=== PATIENT | female | born 1955 | race Caucasian/White ===

== ENCOUNTER 2017-06-19 10:48 | Outpatient (CLI) | payer BC ==
--- NOTE | 2017-06-27 16:56 | MMO ---
BILATERAL SCREENING MAMMOGRAMS: DATE: 06/19/2017 COMPARISON: An outside exam dated 03/31/2015. This patient's mammogram was interpreted with the assistance of computer-aided detection. FINDINGS: Scattered fibroglandular densities. There is an asymmetric nodular density in the outer left breast seen on CC view only. Recommend that this be further evaluated with diagnostic left breast exam. IMPRESSION: BI-RADS 0: Incomplete. Further imaging of left breast required. POS: SELENA
== END 2017-06-19 10:49 | disposition home or self-care (01) ==
LOC: MAMMO 10:48
PROVIDERS: ATTEND Family Medicine
DX: Z12.31 Encounter for screening mammogram for malignant neoplasm of breast (principal)
CPT/HCPCS: 77067; G0202

== ENCOUNTER 2017-06-28 12:58 | Outpatient (CLI) | payer BC ==
--- NOTE | 2017-06-28 14:50 | ULT ---
ULTRASOUND LEFT BREAST: Technique: Ultrasound of the outer left breast was performed to assess a nodular density noted on keren mography. FINDINGS: No sonographic abnormality identified. IMPRESSION: No sonographic abnormality. Recommend follow up left breast mammogram in six months to confirm stabil ity of the mammogram finding. BIRADS 3 - probably benign. Six month follow up left breast mammogram r ecommended. POS: SELENA
--- NOTE | 2017-06-28 14:55 | MMO ---
DIAGNOSTIC LEFT MAMMOGRAM: Technique: Patient returns for additional mammograms of the left breast. FINDINGS: Small nodular density is the outer left breast is again seen on mag C view. This density is not well seen on the MLO or ML projections. Ultrasound of the outer left breast was performed. No suspicious sonographic abnormality identified. Recommend follow up left breast mammogram to confirm stability. IMPRESSION: BIRADS 3 - probably benign. Recommend six month follow up left breast mammogram. POS: SELENA
== END 2017-06-28 12:59 | disposition home or self-care (01) ==
LOC: MAMMO 12:58
PROVIDERS: ATTEND Family Medicine
DX: R92.2 Inconclusive mammogram (principal)
CPT/HCPCS: G0206-LT

== ENCOUNTER 2018-02-16 15:15 | Outpatient (CLI) | payer OTHER | END 2018-02-16 15:16 | disposition home or self-care (01) | LOC: BICMAMMO 15:15 | PROVIDERS: ATTEND Family Medicine | DX: R92.8 Other abnormal and inconclusive findings on diagnostic imaging of breast (principal) | CPT/HCPCS: G0279 ==

== ENCOUNTER 2019-05-01 07:53 | Outpatient (CLI) | payer OTHER ==
--- NOTE | 2019-05-01 08:24 | MMO ---
Bilateral MAMMO Bilat Screen [facility]. CLINICAL HISTORY: Patient is 63 years old and is seen for screening. The patient has no family history of breast cancer. The patient has no personal history of cancer. VIEWS: The views performed were: bilateral craniocaudal with tomosynthesis; bilateral mediolateral oblique with tomosynthesis; and bilateral exaggerated craniocaudal. FILMS COMPARED: The present examination has been compared to prior imaging studies performed at [facility] on 06/19/2017, 06/28/2017 and 02/16/2018. This study has been interpreted with the assistance of computer-aided detection. MAMMOGRAM FINDINGS: There are scattered fibroglandular densities. There are stable benign appearing calcifications seen in both breasts. There are no suspicious masses, suspicious calcifications, or new areas of architectural distortion. IMPRESSION: THERE IS NO MAMMOGRAPHIC EVIDENCE OF MALIGNANCY. A ROUTINE FOLLOW-UP MAMMOGRAM IN 1 YEAR IS RECOMMENDED. THE RESULTS OF THIS EXAM WERE SENT TO THE PATIENT. ACR BI-RADS Category 2 - Benign finding MAMMOGRAPHY NOTE: 1. A negative mammogram report should not delay a biopsy if a dominant of clinically suspicious mass is present. 2. Approximately 10% to 15% of breast cancers are not detected by mammography. 3. Adenosis and dense breasts may obscure an underlying neoplasm. Reported by: MARIA DASILVA MD Electonically Signed: [id number]
== END 2019-05-01 07:54 | disposition home or self-care (01) ==
LOC: BICMAMMO 07:53
PROVIDERS: ATTEND Family Medicine
DX: Z12.31 Encounter for screening mammogram for malignant neoplasm of breast (principal)
CPT/HCPCS: 77063; 77067

== ENCOUNTER 2020-06-23 15:02 | Outpatient (CLI) | payer OTHER ==
--- NOTE | 2020-06-23 16:05 | MMO ---
Bilateral MAMMO Bilat Screen [facility]. CLINICAL HISTORY: Patient is 64 years old and is seen for screening. The patient has no family history of breast cancer. The patient has no personal history of cancer. VIEWS: The views performed were: bilateral craniocaudal with tomosynthesis and bilateral mediolateral oblique with tomosynthesis. FILMS COMPARED: The present examination has been compared to prior imaging studies performed at [facility] on 06/19/2017, 06/28/2017, 02/16/2018 and 05/01/2019. This study has been interpreted with the assistance of computer-aided detection. MAMMOGRAM FINDINGS: There are scattered fibroglandular densities. Benign calcifications are noted bilaterally. There are no suspicious masses, suspicious calcifications, or new areas of architectural distortion. IMPRESSION: THERE IS NO MAMMOGRAPHIC EVIDENCE OF MALIGNANCY. A ROUTINE FOLLOW-UP MAMMOGRAM IN 1 YEAR IS RECOMMENDED. THE RESULTS OF THIS EXAM WERE SENT TO THE PATIENT. ACR BI-RADS Category 2 - Benign finding MAMMOGRAPHY NOTE: 1. A negative mammogram report should not delay a biopsy if a dominant of clinically suspicious mass is present. 2. Approximately 10% to 15% of breast cancers are not detected by mammography. 3. Adenosis and dense breasts may obscure an underlying neoplasm. Reported by: XIMENA COULTER MD Electonically Signed: [id number]
== END 2020-06-23 15:03 | disposition home or self-care (01) ==
LOC: BICMAMMO 15:02
PROVIDERS: ATTEND Family Medicine
DX: Z12.31 Encounter for screening mammogram for malignant neoplasm of breast (principal)
CPT/HCPCS: 77063; 77067

== ENCOUNTER 2020-08-03 07:52 | Outpatient (CLI) | payer OTHER ==
--- NOTE | 2020-08-03 09:43 | BD ---
DEXA BONE DENSITY STUDY: HISTORY: Postmenopausal. FINDINGS: Lumbar Spine: BMD (g/cm2) L1 0.740 T-Score: -2.3 L2 0.777 T-Score: -2.3 L3 0.910 T-Score: -1.6 L4 1.028 T-Score: -0.2 L1-L4 0.883 T-Score: -1.5 Femoral Neck: 0.703 T-Score: -1.3 Total Femur: 0.848 T-Score: -0.8 Impression: 1. Osteopenia of the left femoral neck and lumbar spine. 2. Ten-year fracture risk for a major osteoporotic fracture is 8.3% and of a hip fracture 0.7%. The se fracture probabilities are calculated for an untreated patient. POS: OFF
== END 2020-08-03 07:53 | disposition home or self-care (01) ==
LOC: BICMAMMO 07:52
PROVIDERS: ATTEND Obstetrics & Gynecology
DX: Z13.820 Encounter for screening for osteoporosis (principal); M85.89 Other specified disorders of bone density and structure, multiple sites
CPT/HCPCS: 77080

== ENCOUNTER 2021-07-26 08:00 | Outpatient (CLI) | payer OTHER | END 2021-07-26 08:01 | disposition home or self-care (01) | LOC: BICMAMMO 08:00 | PROVIDERS: ATTEND Family Medicine | DX: Z12.31 Encounter for screening mammogram for malignant neoplasm of breast (principal) | CPT/HCPCS: 77063; 77067 ==

== ENCOUNTER 2022-08-10 10:31 | Outpatient (CLI) | payer OTHER | END 2022-08-10 10:32 | disposition home or self-care (01) | LOC: BICMAMMO 10:31 | PROVIDERS: ATTEND Family Medicine | DX: Z12.31 Encounter for screening mammogram for malignant neoplasm of breast (principal); Z13.820 Encounter for screening for osteoporosis; Z78.0 Asymptomatic menopausal state; M81.0 Age-related osteoporosis without current pathological fracture; M85.851 Other specified disorders of bone density and structure, right thigh; M85.852 Other specified disorders of bone density and structure, left thigh | CPT/HCPCS: 77063; 77067; 77080 ==

== ENCOUNTER 2023-08-17 07:52 | Outpatient (CLI) | payer MEDICARE | END 2023-08-17 07:53 | disposition home or self-care (01) | LOC: BICMAMMO 07:52 | PROVIDERS: ATTEND Family Medicine | DX: Z12.31 Encounter for screening mammogram for malignant neoplasm of breast (principal) | CPT/HCPCS: 77063; 77067 ==

== ENCOUNTER 2024-08-30 08:47 | Outpatient (CLI) | payer MEDICARE | END 2024-08-30 08:48 | disposition home or self-care (01) | LOC: BICMAMMO 08:47 | PROVIDERS: ATTEND Family Medicine | DX: Z12.31 Encounter for screening mammogram for malignant neoplasm of breast (principal) | CPT/HCPCS: 77063; 77067 ==